=== PATIENT | female | born 1980 | race Caucasian/White ===

== ENCOUNTER 2017-08-28 07:23 | Day surgery (SDC) | payer BC, SELFPAY ==
[2017-08-25 11:56] LABS: Hematocrit 35.8 % (37-47); Hemoglobin 11.1 g/dl (12.0-15.0); Mean Corpuscular Hgb 25.4 pg (27.0-32.0); Mean Corpuscular Volume 81.9 fL (81-99); Platelet Count 436 K/mm3 (150-450); RBC Distribution Width CV 14.2 % (11.6-14.6); RBC Distribution Width SD 41.8 fl (35.1-43.9); Red Blood Count 4.37 M/mm3 (4.2-5.4); White Blood Count 12.6 K/mm3 (4.4-11.0)
[2017-08-25 11:57] LABS: Scan Indicated on CBC? Y/N NO
[2017-08-28] VITALS (12 sets, daily range): BP systolic 95–153; BP diastolic 52–100; PULSE 68–102; RESP 14–18; TEMP 36.1–37.1; O2SAT 93–100; BMI 45.0; BMI 44.9
[2017-08-28 07:49] LABS: Internal QC Validated? YES +Cl - CLEAR BKGD; Pregnancy, Urine Negative Negative
[2017-08-28] MEDS: Phenazopyridine 95 MG Tablet 190 MG PO (07:52)
[2017-08-28] MEDS: Bupivacaine Mpf 0.5% 30 ML VIAL (12:00)
[2017-08-28] MEDS: Ondansetron 4 MG/2 ML Vial (12:19)
--- NOTE | 2017-08-28 12:31 | PCM.OP.BLANK ---
Operative Report Date of Procedure: 08/28/17 re-Operative Diagnosis:pelvic pain, suspect adenomyosis Post-Operative Diagnosis: same, Endometriosis stage 3-4 Surgery/Procedure Performed:: LAVH, bilateral salpingectomy, right oophorectomy, cystoscopy Description of Surgical Findings:: dense adhesions to right and left adnexal structures. right tube- hematosalpinx - right ovary removed- unable to disect off uterine side wall due to adhesions. insurance law specialist: Dr. Niesha Carpio Type of Anesthesia:: General Anesthesiologist: Special Medications: 1% Lidocaine with Epinephrine Specimen's removed: uterus, cervix, bilateral tubes right ovary Drains: lucio Estimated Blood Loss (mL): 250 FLUIDS: 1800 cc LR Description of Procedure: Patient take to OR and prepped and draped in usual sterile fashion in dorsal lithotomy position with her arms tucked in a neurologically safe and neutral position. The uterus sounded to 8 cm. The [facility] uterine manipulator and lucio were placed. Attention was turned to the abdomen. All port sites were infiltrated with 1% lidocaine before the incisions were made. The anterior abdominal wall was tented up with towel clamps and using a direct entry approach a 5 mm intraumbilical port was placed. Intraperitoneal placement was confirmed with the laparoscope and the pneumoperitoneum was created. The patient was placed in Trendelenburg and 5 mm right and left lower quadrant ports were placed under direct visualization. The bowel was swept away. Ovaries adherent to uterine side wall and to tubes. after trying to dissect the adhesions to ovaries the left ovary was able to be freed but right had bleeding and was densely adherent. decision made to remove right ovary. The Infundibulopelvic ligament on right was grasped, clamped, sealed and transected with the Ligasure. The round ligaments were divided. The anterior peritoneum was dissected down to create the bladder flap with blunt dissection and the LigaSure. The uterine arteries were isolated, clamped, sealed and cut. There was minimal back bleeding from the uterus. Attention was turned to the vaginal portion of the case. The anterior vagina was infiltrated w/ lidocaine with dilute epinephrine. An incision was made circumferentially around vagina and the anterior colpotomy incision was made with blunt and sharp dissection. The ligaments were clamped, transected and suture ligated. The right Ovary was grasped with camilla and brought down to visual field- adhesions to pelvic side wall were clamped with heney clamp and transected and suture ligated. right ovary, tubes, cervic and Uterus were removed The specimen was handed off. The cuff was closed with interrupted 0-vicryl figure of 8 sutures. Cystoscopy was performed- both ureteral jets were noted- bladder mucosa intact. The pneumoperitoneum was recreated. right pelvic side wall bleeding- ENDOLOOP placed over bleeding vessels- ureter seen inferior to placement. Cuff was hemostatic. Flowseal and bonita placed on right pelvic side wall and cuff. Good hemostasis appreciated. The skin incisions were closed with skin glue and 3-0 monocryl. The vaginal sweep was completed by me. Grafts/Implants Used: none
--- NOTE | 2017-08-28 12:40 | OP.PCM_ITS ---
Operative Report Date of Procedure: 08/28/17 re-Operative Diagnosis:pelvic pain, suspect adenomyosis Post-Operative Diagnosis: same, Endometriosis stage 3-4 Surgery/Procedure Performed:: LAVH, bilateral salpingectomy, right oophorectomy , cystoscopy Description of Surgical Findings:: dense adhesions to right and left adnexal structures. right tube- hematosalpinx - right ovary removed- unable to disect off uterine side wall due to adhesions. 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 Niesha Carpio Type of Anesthesia:: General Anesthesiologist: Special Medications: 1% Lidocaine with Epinephrine Specimen's removed: uterus, cervix, bilateral tubes right ovary Drains: lucio Estimated Blood Loss (mL): 250 FLUIDS: 1800 cc LR Description of Procedure: Patient take to OR and prepped and draped in usual sterile fashion in dorsal lithotomy position with her arms tucked in a neurologically safe and neutral position. The uterus sounded to 8 cm. The [facility] uterine manipulator and lucio were placed. Attention was turned to the abdomen. All port sites were infiltrated with 1% lidocaine before the incisions were made. The anterior abdominal wall was tented up with towel clamps and using a direct entry approach a 5 mm intraumbilical port was placed. Intraperitoneal placement was confirmed with the laparoscope and the pneumoperitoneum was created. The patient was placed in Trendelenburg and 5 mm right and left lower quadrant ports were placed under direct visualization. The bowel was swept away. Ovaries adherent to uterine side wall and to tubes. after trying to dissect the adhesions to ovaries the left ovary was able to be freed but right had bleeding and was densely adherent. decision made to remove right ovary. The Infundibulopelvic ligament on right was grasped, clamped, sealed and transected with the Ligasure. The round ligaments were divided. The anterior peritoneum was dissected down to create the bladder flap with blunt dissection and the LigaSure. The uterine arteries were isolated, clamped , sealed and cut. There was minimal back bleeding from the uterus. Attention was turned to the vaginal portion of the case. The anterior vagina was infiltrated w/ lidocaine with dilute epinephrine. An incision was made circumferentially around vagina and the anterior colpotomy incision was made with blunt and sharp dissection. The ligaments were clamped, transected and suture ligated. The right Ovary was grasped with camilla and brought down to visual field- adhesions to pelvic side wall were clamped with heney clamp and transected and suture ligated. right ovary, tubes, cervic and Uterus were removed The specimen was handed off. The cuff was closed with interrupted 0-vicryl figure of 8 sutures. Cystoscopy was performed- both ureteral jets were noted- bladder mucosa intact. The pneumoperitoneum was recreated. right pelvic side wall bleeding- ENDOLOOP placed over bleeding vessels- ureter seen inferior to placement. Cuff was hemostatic. Flowseal and bonita placed on right pelvic side wall and cuff. Good hemostasis appreciated. The skin incisions were closed with skin glue and 3-0 monocryl. The vaginal sweep was completed by me. Grafts/Implants Used: none
[2017-08-28] MEDS: HYDROmorphone 1 MG/ML Syringe IV ×2 (14:20→21:29)
--- NOTE | 2017-08-28 16:11 | PCM.DC.AHY ---
Discharge Diet: No Restrictions Discharge Activity: Return to Normal Activity, May Not Drive - while taking narcotic pain medications., May Shower May resume sexual activity in: 6-8 weeks Lifting Restrictions: 20 Call your doctor if your incision/area has: Continuous Slow Oozing, Sudden Increased Bleeding, Increased Pain/ Swelling, Increased Redness, Foul Smelling Discharge Call your doctor if you observe: Fever of 101 or Higher, Inability to urinate, Inability to have a bowel movement, Using more than one pad per hour Cleanse incision/area with: Soap & Water, - - do not pick off skin glue- may get it wet and dab dry. Allergies/Adverse Reactions: Allergies Penicillins [PCN] Allergy (Verified 08/21/17 15:15) Unknown Medications to take at Discharge Albuterol IH (ProAir) [Proair Hfa] 1 - 2 puff INHALATION Q4H PRN PRN 08/21/17 Ferrous Sulfate [Iron] 325 mg PO DAILY 08/21/17 Sertraline HCl [Zoloft] 100 mg PO DAILY 08/21/17 Docusate Sodium [Colace] 100 mg PO BID #30 cap 08/28/17 Ibuprofen [Motrin] 800 mg PO Q8H PRN PRN #30 tab 08/28/17 Oxycodone HCl/Acetaminophen [Percocet 5/325] 1 tablet PO Q6H PRN PRN 7 Days #30 tablet 08/28/17 SimETHICONE [Mylicon] 80 mg PO PCHS #30 tab 08/28/17 The following prescriptions were given: Oxycodone HCl/Acetaminophen [Percocet 5/325] 1 tablet PO Q6H PRN PRN 7 Days #30 tablet PRN Reason: Pain Ibuprofen [Motrin] 800 mg PO Q8H PRN PRN #30 tab PRN Reason: Pain SimETHICONE [Mylicon] 80 mg PO PCHS #30 tab Docusate Sodium [Colace] 100 mg PO BID #30 cap Primary Care Physician: Tova Naranjo NP-C [Primary Care Provider] - Please Follow Up With: Theresa Molina MD When: as scheduled
[2017-08-28] MEDS: oxyCODONE 5 MG Tablet PO ×2 (17:12→21:40)
[2017-08-28] MEDS: Acetaminophen 500 MG Tablet 1000 MG PO ×2 (17:13→21:43)
[2017-08-28 18:37] LABS: Hematocrit 34.3 % (37-47); Hemoglobin 10.6 g/dl (12.0-15.0); Mean Corp Hgb Conc 30.9 g/gl (32-36); Mean Corpuscular Hgb 25.2 pg (27.0-32.0); Mean Corpuscular Volume 81.5 fL (81-99); Mean Platelet Vol. 7.9 fl (6.2-12.0); Platelet Count 333 K/mm3 (150-450); RBC Distribution Width CV 14.3 % (11.6-14.6); RBC Distribution Width SD 42.5 fl (35.1-43.9); Red Blood Count 4.21 M/mm3 (4.2-5.4); White Blood Count 17.8 K/mm3 (4.4-11.0)
[2017-08-28 18:44] LABS: Scan Indicated on CBC? Y/N NO
[2017-08-28 19:32] LABS: Anion Gap 12 (5-15); BUN 15 mg/dL (7-18); BUN/Creat Ratio 17.8 RATIO (10-20); Calcium,Total 8.5 mg/dL (8.5-10.1); Chloride 105 mmol/L (98-107); Creatinine, Serum 0.84 mg/dL (0.55-1.02); EST Glomerular Filtration Rate 81 mL/min (>60); Est Glom Filt Rate - Afr Amer 97 mL/min (>60); Estimated Creatinine Clearance 75.85 ml/min; Glucose 134 mg/dL (74-106); Potassium 4.2 mmol/L (3.5-5.1); Sodium Level 139 mmol/L (136-145)
[2017-08-28] MEDS: Docusate Sodium 100 MG Capsule PO (21:41)
[2017-08-28] MEDS: Lactated Ringers 1,000 ML 125 ML IV (22:00)
--- NOTE | 2017-08-29 | HYST_PTH ---
PATIENT: FRANCESCA TOWNSEND LOC: [facility] [place] U#:[id number] AGE/SX: 36/F ROOM: RE08/28/[address]: Dr. Theresa Molina, MDDOB: 1980 BED: DIS: 08/29/2017 SPEC #: [id number] RECD: 08/29/17 09:25 STATUS: RICK YI #: [id number] MONICA: 08/29/17 00:[address]: Theresa Molina DEPT: SURGICAL PATHOLOGY RECD BY: Sav Tejada ENTERED: 08/29/17 09:25 SP TYPE: HYSTERECT OTHR DR: Tova Naranjo, BEAM WORKER-C Tissues: Uterus, NOS Procedures: Surgery Specimen Level V HEADER OPERATION: Laparoscopic assisted vaginal hysterectomy, bilateral salpingectomy PRE-OP DIAGNOSIS: Abnormal uterine bleeding TISSUE SUBMITTED: Uterus, cervix, bilateral fallopian tubes, right ovary MICROSCOPIC DIAGNOSIS Uterus, hysterectomy: Cervix ? squamous metaplasia and chronic inflammation. Endometrium ? proliferative endometrium. Myometrium ? adenomyosis. Right fallopian tube ? eosinophilic esophagitis. Left fallopian tube ? paratubal cyst. Right ovary ? fragments of ovarian tissue with corpus luteal cysts and corpora albicantia. AM:esvin 09/01/17 MICROSCOPIC DESCRIPTION Slides are reviewed. GROSS DESCRIPTION Received in fixative is one container labeled with the patient's name and designated uterus, cervix, bilateral fallopian tubes and right ovary. The specimen consists of a hysterectomy specimen consisting of uterus with cervix, detached bilateral fallopian tubes and detached ovary in multiple pieces. The uterus with cervix weighs 108 gm and measures 9 x 7 x 4.5 cm. A portion of right fallopian tube is also present at one cornu. The serosal surface shows numerous instrumentation miles. The ectocervical mucosa is unremarkable. The external os is oval and patulous in contour. The endocervical canal measures 3 cm in length and the endocervical mucosa is ramirez, glistening and unremarkable. The triangular endometrial cavity measures 5 cm in length and 2.5 cm in width. The endometrium is congested, hemorrhagic and measures 0.1 cm in thickness. Sections of the myometrial wall do not reveal any mass lesion and measures up to 2 cm in thickness. The fallopian tubes are not identified as right or left. One of the fallopian tubes measure 2.5 cm in length and 0.5 cm in diameter. A small portion of fimbrial end is noted. Sections reveal unremarkable cut surfaces. The proximal portion of right fallopian tube attached at one cornu measures 1.5 cm in length and 0.5 cm in diameter. This portion is inked black. The portion of second fallopian tube is markedly distorted and measures 3 x 1 x 1 cm. An obvious fimbrial end is not identified. A paratubal cyst is noted measuring 0.5 cm in greatest dimension. Also received is a portion of ovary identified as right ovary in multiple pieces measuring in aggregate 5 x 4 x 2.5 cm. A portion of the largest piece reveals a collapsed cyst measuring 2 cm in greatest dimension. Gunner[employer] Mate sections are submitted in 11 cassettes as follows: 1 - anterior cervix, 2 - posterior cervix, 3 & 4 - anterior uterine wall, 5 & 6 - posterior uterine wall, 7 ? one fallopian tube and attached portion of right fallopian, inked black, 8 & 9 ? second fallopian tube and paratubal cyst, 10-11 ? ovary. / KIRA:esvin 08/29/17 TC:5 CPT: 89813
--- NOTE | 2017-08-29 00:07 | NURSING ---
Pt c/o of pain 01/21, proceeded to give 1mg/ml of Dilaudid IVP with LR running. Made sure to assess compatibility beforehand. Pushed Dilaudid slowly into closest port, within 10 seconds pt began to grimace and pull arm back stating it was 'burning'. At that point Dilaudid dc'd, stopped the flow of LR and disconnected. Obtained a 10cc flush + ice pack. Sat with pt until burning subsided. Left FA appeared slightly reddened, but showed no other signs of infiltration. Allowed arm to rest for 15-20 minutes then flushed IV site once more with pt voicing no complaint. Restarted LR's and monitoring site. Also switched to PO analgesics.
[2017-08-29 03:47] VITALS: BP 99/70; PULSE 89; RESP 16; TEMP 36.8; O2SAT 97
[2017-08-29] MEDS: oxyCODONE 5 MG Tablet PO ×3 (03:51→12:28)
[2017-08-29 05:54] LABS: Hemoglobin 9.4 g/dl (12.0-15.0); Mean Corp Hgb Conc 30.3 g/gl (32-36); Mean Corpuscular Hgb 24.9 pg (27.0-32.0); Mean Platelet Vol. 7.8 fl (6.2-12.0); Platelet Count 380 K/mm3 (150-450); RBC Distribution Width CV 14.7 % (11.6-14.6); RBC Distribution Width SD 44.5 fl (35.1-43.9); Red Blood Count 3.78 M/mm3 (4.2-5.4); White Blood Count 15.7 K/mm3 (4.4-11.0)
[2017-08-29 05:55] LABS: Scan Indicated on CBC? Y/N NO
[2017-08-29] MEDS: Acetaminophen 500 MG Tablet 1000 MG PO (05:56)
[2017-08-29] MEDS: Lactated Ringers 1,000 ML 125 ML IV (05:57)
[2017-08-29 06:45] VITALS: O2SAT 97
--- NOTE | 2017-08-29 08:13 | PCM.PN.OB ---
Subjective: pt seen up at chair eating regular breakfast. pt reports abdominal pain- denies CP, SOB, dizziness. pt reports voiding w/o difficulty. Not passing flatus yet. - Physical Exam General: Alert, Oriented x3 Abdomen: Soft, Non-Distended, - - incision sites intact. Appropriately tender to palpation Extremities: No Calf Tenderness Vital Signs Temp Pulse Resp BP Pulse Ox 98.3 F 89 16 99/70 97 08/29/17 03:47 08/29/17 03:47 08/29/17 03:47 08/29/17 03:47 08/29/17 03:47 Oxygen Flow Rate (L/min) 2 Oxygen Delivery Method Nasal Cannula Weight: 115.212 kg Body Mass Index (BMI) 44.9 Intake and Output for Last 24 Hours 08/27/17 08/28/17 08/29/17 23:59 23:59 23:59 Intake Total 2979 / 2979 2061 / 2061 Output Total 450 / 450 550 / 550 Balance 2529 / 2529 1511 / 1511 Laboratory Tests Past 24 Hrs 08/28/17 08/28/17 08/29/17 18:00 18:00 05:30 WBC 17.8 H 15.7 H RBC 4.21 3.78 L Hgb 10.6 L 9.4 L Hct 34.3 L 31.0 L MCV 81.5 82.0 MCH 25.2 L 24.9 L MCHC 30.9 L 30.3 L RDW 14.3 14.7 H RDW Differential 42.5 44.5 H Plt Count 333 380 MPV 7.9 7.8 Sodium 139 Potassium 4.2 Chloride 105 Carbon Dioxide 22.0 Anion Gap 12 BUN 15 Creatinine 0.84 Estim Creat Clear Calc 75.85 Est GFR (MDRD) Af Amer 97 Est GFR (MDRD) Non-Af 81 BUN/Creatinine Ratio 17.8 Glucose 134 H Calcium 8.5 Medical Necessity - Tobacco Use Smoking Status: Never smoker Assessment/Plan POD#1, doing well 1) Pain mgmt 2) will start motrin this morning and try PO oxycodone as pt did not like IV pain meds 3) home dc instructions were reviewed 4) ambulation 5) Dc home when pain is controlled.
[2017-08-29] MEDS: Ibuprofen 600 MG Tablet PO (08:18)
[2017-08-29] MEDS: Docusate Sodium 100 MG Capsule PO (08:18)
[2017-08-29 09:50] VITALS: BP 104/50; PULSE 95; RESP 18; TEMP 37.1; O2SAT 96
[2017-08-29 12:59] VITALS: BP 115/63; PULSE 87; RESP 18; TEMP 37.2; O2SAT 94
== END 2017-08-29 13:02 | disposition home or self-care (01) ==
LOC: SDC 07:24 → AC 07:25 → MS2 13:37
PROVIDERS: Anesthesiology; Family Provider Nurse Practitioner Family; PCP Nurse Practitioner Family; Visit Provider Obstetrics & Gynecology
PROC: (CPT 35221; principal; 2017-08-28 08:35)
DX: N87.9 Dysplasia of cervix uteri, unspecified (principal); N72 Inflammatory disease of cervix uteri; N80.0 Endometriosis of uterus; N83.8 Other noninflammatory disorders of ovary, fallopian tube and broad ligament; N83.11 Corpus luteum cyst of right ovary; N83.291 Other ovarian cyst, right side; F41.9 Anxiety disorder, unspecified; F32.9 Major depressive disorder, single episode, unspecified; K21.0 Gastro-esophageal reflux disease with esophagitis; J45.909 Unspecified asthma, uncomplicated; D64.9 Anemia, unspecified; Z79.51 Long term (current) use of inhaled steroids; Z79.899 Other long term (current) drug therapy
CPT/HCPCS: 00840; 35221; 58552; 58660; 36415; 80048; 81025; 85027; 86850; 86900; 88307; J7120; J2405